=== PATIENT | female | born 1955 | race Caucasian/White ===

== ENCOUNTER 2024-10-01 12:17 | Outpatient (CLI) | payer MEDICARE, BC ==
--- NOTE | 2024-10-01 13:11 | RADIOLOGY REPORT ---
EXAM: DI CHEST,TWO VIEWS CLINICAL HISTORY: COUGH COMPARISON: None TECHNIQUE: Frontal and lateral view of the chest was obtained FINDINGS: Lines and Tubes: None Lungs: No focal consolidation. Pleura: No effusion. No pneumothorax. Cardiomediastinal contours: Unremarkable Bones: No acute osseous abnormality. IMPRESSION: No acute cardiopulmonary disease.
== END 2024-10-01 23:59 | disposition home or self-care (01) ==
LOC: RAD 12:17
PROVIDERS: ATTEND Family Medicine
DX: R05.9 Cough, unspecified (principal)
CPT/HCPCS: 71046

== ENCOUNTER 2025-02-05 15:38 | Outpatient (CLI) | payer MEDICARE, BC ==
[~2025-02-05] VITALS: Ht 161.3 cm; Wt 57.2 kg
[2025-02-05] MEDS: albuterol 2.5 MG/3 ML nebule NEB ONE (16:17)
[2025-02-05 16:19] VITALS: PULSE 70; RESP 18; O2SAT 98
[2025-02-05 16:32] VITALS: PULSE 80; RESP 80
--- NOTE | 2025-02-10 15:39 | PROCEDURE NOTE - Respiratory ---
Procedure Note-Respiratory Providers to CC Copies To 1: MOISE GOTTI MD Procedure Name: This is a spirometry study dated February 05, 2025. The spirometry study was performed both before and after inhaled bronchodilator. Spirometry measurements: Both the forced vital capacity and the FEV1 measurements are in the lower range of normal. The FEV1 ratio is borderline diminished. Several of the flow rate measurements are mildly reduced. After inhaled bronchodilator was administered, some of the flow rates show some very slight improvement. Conclusion: This study shows mild abnormality. There is evidence for obstructive ventilatory defect although it seems to be very mild. The patient seems to show very slight improvement with inhaled bronchodilator. These findings suggest a diagnosis of mild asthma. This patient may very well show clinical improvement following a clinical trial of daily inhaled bronchodilator. We have no previous studies for comparison. MOISE MORALES MD Feb 10, 2025 15:39
== END 2025-02-05 23:59 | disposition home or self-care (01) ==
LOC: RT 15:38
PROVIDERS: ATTEND Family Medicine
DX: J45.909 Unspecified asthma, uncomplicated (principal)
CPT/HCPCS: 94060; 94760